=== PATIENT | male | born 1950 | race Caucasian/White ===

== ENCOUNTER → 2016-11-22 | Day surgery (SDC) | payer OTHER | END | disposition home or self-care (01) | LOC: FAS 13:36 | DX: H26.9 Unspecified cataract (principal); I10 Essential (primary) hypertension; Z87.891 Personal history of nicotine dependence; Z79.899 Other long term (current) drug therapy | CPT/HCPCS: V2632 ==

== ENCOUNTER → 2021-08-25 | Day surgery (SDC) | payer OTHER ==
[~2021-08-25] VITALS: Ht 190.5 cm; Wt 104.3 kg
[~2021-08-25] MED LIST: AMLODIPINE BESY10 MG PO; MVI PO; NORCO 5-325 TA1 EACH PO; ONDANSETRON ODT8 MG PO; SODIUM BICARBO650 M1 PO
[2021-08-25 07:54] LABS: HCT 39.8 % (42.0-52.0); HGB 13.1 g/dl (13.2-18.0); MCH 29.5 pg (25.0-31.0); MCHC 32.9 g/dL (32.0-36.0); MCV 89.6 fL (78.0-100.0); MPV 9.1 fL (6.0-9.5); RBC 4.44 M/uL (4.70-6.00); RDW 12.7 % (11.5-14.0); WBC 8.2 K/uL (4.0-10.5)
[2021-08-25 08:07] LABS: BILIRUBIN - TOTAL 0.4 mg/dL (0.2-1.0); BUN/CREAT RATIO (CALC) 14.4 RATIO; CREATININE 2.15 mg/dL (0.67-1.17); GLOBULIN (CALCULATION) 4.1 g/dL; TOTAL PROTEIN 8.1 g/dL (6.4-8.2)
== END | disposition home or self-care (01) ==
LOC: FAS 07:03
PROVIDERS: Surgery
DX: K40.30 Unilateral inguinal hernia, with obstruction, without gangrene, not specified as recurrent (principal); K40.90 Unilateral inguinal hernia, without obstruction or gangrene, not specified as recurrent; I12.9 Hypertensive chronic kidney disease with stage 1 through stage 4 chronic kidney disease, or unspecified chronic kidney disease; N18.9 Chronic kidney disease, unspecified; Z87.891 Personal history of nicotine dependence
CPT/HCPCS: 36415; 80053; C1727; C1781; J0690; J2250; J2405; J2704; J2710; J3010; J7120